=== PATIENT | male | born 1955 | race Caucasian/White ===

== ENCOUNTER 2016-04-01 10:52 | Emergency (ER) | payer OTHER ==
[~2016-04-01] VITALS: Ht 170.2 cm; Wt 95.6 kg
[~2016-04-01 10:52] MED LIST: AMX500 PO
[2016-04-01 10:53] VITALS: TEMP 37; Ht 170.2 cm; Wt 95.6 kg
[2016-04-01] MEDS ORDERED: MULT-106 PO (10:59)
[2016-04-01] MEDS ORDERED: XYLOCAINE 1%/SOD BICARB 20 ML VIAL INFIL ONE (11:15)
[2016-04-01 11:31] VITALS: BP 206/126; PULSE 109; O2SAT 97
--- NOTE | 2016-04-01 12:04 | EMERGENCY ROOM VISIT NOTE ---
ED Visit Note First contact with patient: 11:01 Chief Complaint: Laceration. History of Present Illness: Mr. Andrews is a 60-year-old white male who ambulates into the ED complaining of a scalp laceration. 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 He felt the height of the fall of the 2 x 4 was approximately 8-10 feet. He reports at the time of the injury he did not have loss of consciousness and since the injury he denies any signs of head injuries. Associated with his laceration he does report he has a stinging pain in the area. He rates his discomfort 2/10. The pain is nonradiating. Pain worsens with palpation. He has not identified any alleviating factors related to the pain. He has not taken any medications for pain prior to arrival at the hospital. He denies any associated headache, dizziness, lightheadedness, abnormal neurological symptoms, neck pain, abdominal pain, nausea, vomiting Review of Systems: As noted above in history of present illness. Past Medical History: Patient denies. Current Medications: Multivitamins. Allergies to Medications: Patient denies. Social History: Patient is currently employed; he feels safe in his home environment; he denies tobacco use. Tetanus Immunization Status: Patient reports up-to-date. Physical Examination: Vital Signs: Date Time Temp Pulse Resp B/P Pulse Ox O2 Delivery O2 Flow Rate FiO2 04/01/16 11:31 109 18 206/126 97 04/01/16 10:53 37.0 112 20 185/92 95 GENERAL: 60-year-old male in no acute distress, nontoxic-appearing, afebrile and hemodynamically stable. NEUROLOGICAL: Awake, alert and oriented to person, place and time. Answering questions appropriately and following commands. Normal gait. Good hand eye coordination. No focal motor sensory deficits. Patient is very anxious. SKIN: Warm, dry and pink. Head: Over the left superior parietal area at the top of the head patient has a 1.3 cm full-thickness laceration. HEENT: Skull: Soft tissue injury as noted above. Normocephalic. Mild tenderness in the area of his laceration without bony deformity, bony crepitus or depressions. No raccoon's eyes or wilkinson signs. Face atraumatic. Airway patent. No malocclusion. Speech normal and clear. ED Course: Patient is assessed as noted above. Wound Repair: Complexity: Basic Verbal consent was obtained after the risks and benefits were explained. The skin was prepped with betadine and a sterile field set. Wound edges of the wound was anesthetized with 1.2 ml buffered 1% lidocaine. The wound was explored for foreign bodies and none found. Copious irrigation was performed using sterile saline. With direct pressure the bleeding subsided. Debridement was not performed. The wound edges were approximated using 3 ursula. Hemostasis and excellent approximation was achieved. No complications and the patient tolerated the procedure well. Patient was educated about tonight's findings and instructed on his treatment plan; he verbalizes understanding and agreement with this plan. Clinical Impression: Laceration of the scalp. Disposition: Patient discharged home in stable condition; prior to departure he was reassessed and subjectively reported he was pain-free. Nurses did report that prior to discharge and reevaluation in his buttock signs he was hypertensive; he reports she does not have a history of hypertensions but is feeling extremely anxious. Nursing personnel recommended that he follow-up with his primary care provider for reevaluation of his blood pressure. Plan: Comfort measures, wound care and signs of infection were discussed with the patient. Patient was educated on signs of head injury. Patient was encouraged to follow-up with Workmen's Compensation or return emergency department for signs of infection and/or staple removal in 10-12 days. Patient was encouraged return the ED for any signs of head injury or any new/ concerning symptoms.
== END 2016-04-01 11:28 | disposition home or self-care (01) ==
LOC: C.EDB 10:53 → C.EDD 11:28
DX: S01.01XA Laceration without foreign body of scalp, initial encounter (principal); W22.8XXA Striking against or struck by other objects, initial encounter; Y99.0 Civilian activity done for income or pay